=== PATIENT | female | born 1995 | race American Indian/Alaskan Native ===

== ENCOUNTER 2017-02-02 11:44 | Emergency (ER) | payer SELFPAY ==
[2017-02-02 12:06] VITALS: BP 120/79
[2017-02-02 12:33] LABS: Basophils % (Auto) 0.4 % (0.0-1.8); Eosinophils % (Auto) 3.7 % (0.0-4.3); Hemoglobin 12.8 gm/dl (10.1-14.3); Mean Corpuscular HGB Conc 33 % (30-34); Mean Corpuscular Hemoglobin 28 pg (28-32); Mean Corpuscular Volume 86 fl (79-97); Platelet Count 302 K/mm3 (140-440); Red Blood Count 4.52 M/mm3 (3.65-5.03); Red Cell Distribution Width 14.8 % (13.2-15.2); White Blood Count 11.1 K/mm3 (4.5-11.0)
[2017-02-02 13:02] LABS: Alanine Aminotransferase 23 units/L (7-56); Albumin 4.2 g/dL (3.9-5); Albumin/Globulin Ratio 1.3 %; Alkaline Phosphatase 56 units/L (35-129); Anion Gap 16 mmol/L; BUN/Creatinine Ratio 17.14; Blood Urea Nitrogen 12 mg/dL (7-17); Calcium 9.3 mg/dL (8.4-10.2); Carbon Dioxide 29 mmol/L (22-30); Chloride 100.1 mmol/L (98-107); Glucose 111 mg/dL (65-100); Lipase 47 units/L (13-60); Potassium 4.2 mmol/L (3.6-5.0); Sodium 141 mmol/L (137-145); Total Protein 7.5 g/dL (6.3-8.2)
[2017-02-02 13:59] LABS: Bilirubin,Urine NEG (Negative); Blood,Urine NEG (Negative); Ketones,Urine NEG (Negative); Leukocyte Esterase,Urine SM (Negative); Mucus,Urine 1+ /HPF; Nitrite,Urine NEG (Negative); Protein,Urine <15 mg/dL mg/dL (Negative); Urobilinogen,Urine < 2.0 mg/dL (<2.0)
--- NOTE | 2017-02-03 10:37 | ED Elopement Review ---
ED Pt Elopement review - Results review Lab results: Laboratory Tests 02/02/17 02/02/17 02/02/17 12:23 12:23 13:48 WBC 11.1 H RBC 4.52 Hgb 12.8 Hct 39.0 MCV 86 MCH 28 MCHC 33 RDW 14.8 Plt Count 302 Lymph % (Auto) 36.4 H [place] % (Auto) 3.3 Eos % (Auto) 3.7 Baso % (Auto) 0.4 Lymph # 4.0 [place] # 0.4 Eos # 0.4 Baso # 0.0 Seg Neutrophils % 56.2 Seg Neutrophils # 6.3 Sodium 141 Potassium 4.2 Chloride 100.1 Carbon Dioxide 29 Anion Gap 16 BUN 12 Creatinine 0.7 Estimated GFR > 60 BUN/Creatinine Ratio 17.14 Glucose 111 H Calcium 9.3 Total Bilirubin 0.40 AST 20 ALT 23 Alkaline Phosphatase 56 Total Protein 7.5 Albumin 4.2 Albumin/Globulin Ratio 1.3 Lipase 47 Urine Color Yellow Urine Turbidity Clear Urine pH 6.0 Ur Specific [place] 1.026 Urine Protein <15 mg/dl Urine Glucose (UA) Neg Urine Ketones Neg Urine Blood Neg Urine Nitrite Neg Urine Bilirubin Neg Urine Urobilinogen < 2.0 Ur Leukocyte Esterase Sm Urine WBC (Auto) 15.0 H Urine RBC (Auto) 4.0 U Epithel Cells (Auto) 16.0 H Urine Mucus 1+ - Call Back decision Pt Call Back Decision: Pt to F/U with PMD
== END 2017-02-02 21:40 | disposition left against medical advice (07) ==
LOC: ED 11:44
DX: R10.11 Right upper quadrant pain (principal); R11.0 Nausea; F12.90 Cannabis use, unspecified, uncomplicated; Z91.040 Latex allergy status; Z72.0 Tobacco use; Z53.21 Procedure and treatment not carried out due to patient leaving prior to being seen by health care provider
CPT/HCPCS: 36415; 80053; 81001; 83690; 85025